=== PATIENT | male | born 1950 ===

== ENCOUNTER 2020-04-18 06:45 | Day surgery (SDC) | payer OTHER ==
[~2020-04-18 06:45] MED LIST: FOLIC ACID PO; MULTIVITA PO; SYNTHROID175 MCG PO; ULORIC40 MG PO
[2020-04-18] MEDS ORDERED: PERCOCET 5-3251 EACH PO (10:32)
[2020-04-18] MEDS ORDERED: RECTICARE30 GM TOP (10:32)
[2020-04-18] MEDS ORDERED: DERMOPLAST PAIN78 GM TOP (10:32)
== END 2020-04-18 19:19 | disposition home or self-care (01) ==
LOC: CIR.AMB 06:45
PROVIDERS: ATTEND Surgery
DX: D01.3 Carcinoma in situ of anus and anal canal (principal); A63.0 Anogenital (venereal) warts; Z20.822 Contact with and (suspected) exposure to COVID-19